=== PATIENT | female | born 1985 | race Caucasian/White ===

== ENCOUNTER 2018-06-04 17:21 | Inpatient (IN) | payer BC, OTHER ==
[2018-06-04 18:07] VITALS: BMI 37.4
[2018-06-04 18:41] LABS: Amnisure Internal Control QC ACCEPTABLE (ACCEPTABLE); Amnisure Test RUPTURE DETECTED (No Rupture)
[2018-06-04] MEDS: Lactated Ringer's 1,000 ML IV SCH (19:11)
[2018-06-04 20:43] LABS: Hemoglobin 11.4 g/dL (12.0-16.0); Mean Corpuscular HGB CONC 33.1 g/dL (32.0-36.0); Mean Corpuscular Hemoglobin 29.6 pg (27.0-31.0); Mean Corpuscular Volume 89.5 fL (78.0-98.0); Mean Platelet Volume 6.8 fL (7.4-10.4); Platelet Count 272 thou/uL (130-400); RBC Distribution Width 14.8 % (11.5-14.5); Red Blood Cell (RBC) Count 3.84 mill/uL (4.20-5.40); White Blood Cell (WBC) Count 8.9 thou/uL (4.8-10.8)
[2018-06-04] MEDS ORDERED: Butorphanol Tartrate 1 MG/ML VIAL SLOW IVP PRN (20:52)
[2018-06-04] MEDS ORDERED: Ondansetron PF 4 MG/2 ML Vial IVP PRN (20:52)
[2018-06-04] MEDS ORDERED: Promethazine HCl 25 MG/ML VIAL IM PRN (20:52)
[2018-06-04 21:23] LABS: Syphilis Antibody Nonreactive (Nonreactive); Syphilis Antibody Index 0.06 S/CO (<1.00 Non-Reactive)
[2018-06-05] MEDS ORDERED: NS w/ Oxytocin 10 units 500 ML IVPB SCH (02:00)
[2018-06-05] MEDS: Lactated Ringer's 1,000 ML IV SCH ×2 (02:10→08:18)
[2018-06-05 02:11] LABS: Hep B Surf Ag Non-Reactive S/CO (NonReactive)
[2018-06-05] MEDS ORDERED: Fentanyl 4 mcg/Bup 0.1% Cadd 100 ML ONE (07:13)
[2018-06-05] MEDS ORDERED: Lidocaine 1.5% w/Epi 1:200K 30 ML VIAL (Epid Use) ONE (08:09)
[2018-06-05] MEDS ORDERED: Lidocaine 1% (PF) 30 ML VIAL ONE (11:16)
[2018-06-05] MEDS ORDERED: NS / Oxytocin 40 units/1000ml 1,000 ML ONE (11:16)
--- NOTE | 2018-06-05 11:43 | PDOC.LDPN ---
Labor & Delivery Progress Note - Subjective Subjective: comfortable (just got epidural) - Objective Vital signs reviewed and normal: yes General: resting Dilation: 5 Effacement: 90% Station: -1 FHT: category 1 - Assessment (1) Premature rupture of membranes Code(s): O42.90 - DEQUAN ROM, 7TH0 BETW RUPT & ONST LABR, UNSP WEEKS OF GEST Current Visit: Yes Status: Acute (2) 37 weeks gestation of Code(s): Z3A.37 - 37 WEEKS GESTATION OF Current Visit: Yes Status : Acute Plan: continue plan of care -: A/P: PROM w transition to active labor after initiation of pitocin. Continue plan of care.
--- NOTE | 2018-06-05 13:40 | PDOC.OPDEL ---
OB Operative/Delivery Note Delivery Dr/Surgeon: Wilber Pre-Delivery Diagnosis: active labor, ruptured membrane Procedure/Post Delivery Dx: spontaneous vaginal delivery Weeks gestation: 37 Anesthesia: epidural - Findings A Sex: male - 1 min: 9 - 5 min: 10 - Additional Findings/Plan Placenta delivered: spontaneous Repaired Obstetrical Laceration: left labial Estimated blood loss: 400ml Post delivery plan: routine recovery
[2018-06-05] MEDS ORDERED: Lanolin Ointment 7 GM TUBE TOP PRN (14:24)
[2018-06-05] MEDS ORDERED: Milk Of Magnesia 30 ML UDCUP PO PRN (14:24)
[2018-06-05] MEDS ORDERED: HYDROcodone/Acetaminophen 5/325 mg Tablet PO PRN ×2 (14:24)
[2018-06-05] MEDS ORDERED: diphenhydrAMINE 25 MG CAP PO PRN (14:24)
[2018-06-05] MEDS ORDERED: Bisacodyl 10 MG SUPP PR PRN (14:24)
[2018-06-05] MEDS ORDERED: NS / Oxytocin 40 units/1000ml 1,000 ML IV SCH (14:24)
[2018-06-05] MEDS ORDERED: Benzocaine/Menthol 20-0.5% 60 ML CAN TOP PRN (14:24)
[2018-06-05] MEDS: Ibuprofen 800 MG TAB PO SCH ×2 (16:22→23:03)
[2018-06-05] MEDS: Ferrous Sulfate 325 MG TAB PO SCH (16:52)
[2018-06-05] MEDS: Docusate Calcium (SURFAK) 240 MG CAP PO SCH (23:05)
[2018-06-06] MEDS: Ibuprofen 800 MG TAB PO SCH ×3 (06:21→21:42)
[2018-06-06 06:57] LABS: Hemoglobin 9.4 g/dL (12.0-16.0); Mean Corpuscular HGB CONC 31.9 g/dL (32.0-36.0); Mean Corpuscular Volume 90.9 fL (78.0-98.0); Mean Platelet Volume 6.7 fL (7.4-10.4); Platelet Count 202 thou/uL (130-400); RBC Distribution Width 14.9 % (11.5-14.5); Red Blood Cell (RBC) Count 3.25 mill/uL (4.20-5.40); White Blood Cell (WBC) Count 12.1 thou/uL (4.8-10.8)
--- NOTE | 2018-06-06 08:08 | PDOC.PP ---
Post Progress Note Post Day #: 1 Subjective: No concerns. Doing well. Minimal pain and lochia. PO intake tolerated: yes Flatus: yes Ambulation: yes Vital Signs (12 hours) Temp Pulse Resp BP Pulse Ox 06/06/18 04:38 98.1 F 94 18 122/64 06/06/18 00:15 98.3 F 100 18 108/70 06/05/18 20:35 98.5 F 96 18 119/69 97 Weight Weight 218 lb - Physical Examination General: NAD Cardiovascular: RRR Respiratory: non-labored breathing Abdominal: no distention, appropriately TTP Fundus firm & at: below umbilicus Extremities: negative homans (B) Neurological: no gross focal deficits Psychiatric: A&Ox3 Result Diagrams: 06/06/18 05:59 Additional Labs: Post Labs Blood Type O POSITIVE 06/04/18 19:11 Hep Bs Antigen Non-Reactive S/CO (NonReactive) 06/04/18 19:11 (1) Vaginal delivery Code(s): O80 - ENCOUNTER FOR FULL-TERM UNCOMPLICATED DELIVERY Status: Acute (2) Anemia Code(s): D64.9 - ANEMIA, UNSPECIFIED Status: Acute Qualifiers: Other causes of anemia: acute posthemorrhagic - Assessment/Plan PPD1 VSSAF Continue PP care. Continue Fe Plan for d/c home tomorrow.
[2018-06-06] MEDS ORDERED: Adacel (T-DAP) 0.5 ML SYRINGE IM ONE (09:00)
[2018-06-06] MEDS: Ferrous Sulfate 325 MG TAB PO SCH ×2 (09:17→18:13)
[2018-06-06] MEDS: Prenatal Vitamin 1 TAB PO SCH (09:18)
[2018-06-06] MEDS: Docusate Calcium (SURFAK) 240 MG CAP PO SCH ×2 (09:18→21:45)
[2018-06-07] MEDS: Ibuprofen 800 MG TAB PO SCH ×2 (05:58→13:33)
--- NOTE | 2018-06-07 08:31 | PDOC.PP ---
Post Progress Note Post Day #: 2 Subjective: doing well, no concerns, nursing well PO intake tolerated: yes Flatus: yes Ambulation: yes Weight Weight 218 lb - Physical Examination General: NAD Respiratory: non-labored breathing Abdominal: no distention Fundus firm & at: below umb Skin: no rash Neurological: no gross focal deficits Psychiatric: A&Ox3, normal affect Result Diagrams: 06/06/18 05:59 Additional Labs: Post Labs Blood Type O POSITIVE 06/04/18 19:11 Hep Bs Antigen Non-Reactive S/CO (NonReactive) 06/04/18 19:11 (1) Premature rupture of membranes Code(s): O42.90 - DEQUAN ROM, 7TH0 BETW RUPT & ONST LABR, UNSP WEEKS OF GEST Status: Acute (2) 37 weeks gestation of Code(s): Z3A.37 - 37 WEEKS GESTATION OF Status: Acute - Assessment/Plan PPD2, doing well, plan for DC today.
[2018-06-07 08:36] VITALS: BP 115/79; TEMP 98
[2018-06-07] MEDS: Docusate Calcium (SURFAK) 240 MG CAP PO SCH (09:24)
[2018-06-07] MEDS: Ferrous Sulfate 325 MG TAB PO SCH (09:24)
[2018-06-07] MEDS: Prenatal Vitamin 1 TAB PO SCH (09:24)
== END 2018-06-07 15:10 | disposition home or self-care (01) | DRG 807 ==
LOC: L&D/OP 17:21 → L&D 18:49 → 3SW 06-05 16:04
PROVIDERS: ADMIT Obstetrics & Gynecology; ATTEND Obstetrics & Gynecology
PROC: 10E0XZZ Delivery of Products of Conception, External Approach (ICD-10-PCS; principal; 2018-06-05)
PROC: 0UQMXZZ Repair Vulva, External Approach (ICD-10-PCS; 2018-06-05)
DX: O42.92 Full-term premature rupture of membranes, unspecified as to length of time between rupture and onset of labor (principal); Z37.0 Single live birth; O99.02 Anemia complicating childbirth; D64.9 Anemia, unspecified; O70.0 First degree perineal laceration during delivery; Z3A.37 37 weeks gestation of pregnancy
CPT/HCPCS: 36415; 51702; 84112; 85027; 86780; 86850; 86900; 86901; 87340; 99285; J0595; J2001